=== PATIENT | female | born 1955 | race Hispanic/Latino ===

== ENCOUNTER → 2024-05-22 | Outpatient (CLI) | payer OTHER ==
[~2024-05-22] MED LIST: CYAN-106 PO; ERGO500093 PO; FERR325T29 PO; FOLI1 PO; LEVO125T11 PO; METO25 PO; PROP325C17 PO; ROSU10TA72 PO; TOCI400V IV
[2024-05-22 16:42] LABS: HEMOGLOBIN A1C 5.6 % (4.0-6.0)
[2024-05-22 16:47] LABS: ALBUMIN 3.6 g/dL (3.5-5.0); BILIRUBIN,TOTAL 0.6 mg/dL (0.2-1.0); POTASSIUM 4.2 mmol/L (3.5-5.1)
== END | disposition home or self-care (01) ==
LOC: LAB 11:27
PROVIDERS: ATTEND Internal Medicine Cardiovascular Disease
DX: I73.9 Peripheral vascular disease, unspecified (principal); G90.09 Other idiopathic peripheral autonomic neuropathy; E78.5 Hyperlipidemia, unspecified; Z79.899 Other long term (current) drug therapy
CPT/HCPCS: 36415; 80053; 80061; 83036

== ENCOUNTER → 2025-08-13 | Outpatient (CLI) | payer OTHER ==
[~2025-08-13] MED LIST changes: -ROSU10TA72 PO; +ROSU10TA98 PO
== END | disposition home or self-care (01) ==
LOC: WHH 08:33
PROVIDERS: ATTEND Family Medicine
DX: L89.152 Pressure ulcer of sacral region, stage 2 (principal); L89.892 Pressure ulcer of other site, stage 2; L97.821 Non-pressure chronic ulcer of other part of left lower leg limited to breakdown of skin; S80.822A Blister (nonthermal), left lower leg, initial encounter; S71.102A Unspecified open wound, left thigh, initial encounter; I10 Essential (primary) hypertension; E03.9 Hypothyroidism, unspecified; I73.9 Peripheral vascular disease, unspecified; E78.5 Hyperlipidemia, unspecified; M81.0 Age-related osteoporosis without current pathological fracture; I89.0 Lymphedema, not elsewhere classified; E66.01 Morbid (severe) obesity due to excess calories; I48.91 Unspecified atrial fibrillation; Z68.43 Body mass index [BMI] 50.0-59.9, adult; X58.XXXA Exposure to other specified factors, initial encounter; Y93.89 Activity, other specified; Y92.89 Other specified places as the place of occurrence of the external cause; Y99.8 Other external cause status
CPT/HCPCS: G0463